=== PATIENT | male | born 1990 | race Native Hawaiian/Other Pacific Islander ===

== ENCOUNTER 2017-05-08 03:29 | Emergency (ER) | payer OTHER ==
[2017-05-08 03:29] VITALS: BMI 24.7
--- NOTE | 2017-05-08 03:50 | C.PDOC ---
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 Has had a similar episode about 3 weeks ago. Has had a negative mri at [facility]. Time Seen by Provider: 05/08/17 03:50 Chief Complaint (Nursing): Headache History Per: Patient History/Exam Limitations: no limitations Onset/Duration Of Symptoms: Hrs Current Symptoms Are (Timing): Still Present Severity: Moderate Pain Scale Rating Of: 4 Quality: Dull, Aching Preceeding Symptoms: None Associated Symptoms: Nausea, Vomiting Recent travel outside of the [place]: No Additional History Per: Patient, Family Past Medical History Reviewed: Historical Data, Nursing Documentation, Vital Signs Vital Signs: Last Vital Signs Temp 98 F 05/08/17 06:45 Pulse 105 H 05/08/17 06:45 Resp 12 05/08/17 06:45 BP 117/72 05/08/17 06:45 Pulse Ox 96 05/08/17 06:45 - Medical History PMH: Seizures Family History: States: No Known Family Hx - Social History Hx Alcohol Use: Yes Hx Substance Use: No Review Of Systems Constitutional: Negative for: Fever, Chills Eyes: Negative for: Vision Change ENT: Negative for: Throat Pain Cardiovascular: Negative for: Chest Pain Respiratory: Negative for: Shortness of Breath Gastrointestinal: Positive for: Nausea, Vomiting. Negative for: Abdominal Pain Musculoskeletal: Negative for: Back Pain Skin: Negative for: Rash Neurological: Negative for: Weakness Psych: Negative for: Anxiety Physical Exam - Physical Exam Appears: Non-toxic Skin: Warm, Dry Head: No Tenderness, Other (left craniotomy) Eye(s): bilateral: Normal Inspection Oral Mucosa: Moist Neck: Trachea Midline, Supple Chest: Symmetrical Cardiovascular: Rhythm Regular Respiratory: No Rales, No Rhonchi, No Wheezing Gastrointestinal/Abdominal: Soft, No Tenderness, No Distention Back: No CVA Tenderness Extremity: No Tenderness Extremity: Bilateral: Atraumatic Pulses: Left Dorsalis Pedis: Normal, Right Dorsalis Pedis: Normal Neurological/Psych: Oriented x3, Normal Speech, Normal Cognition Gait: Steady ED Course And Treatment - Laboratory Results Result Diagrams: 05/08/17 04:10 05/08/17 04:10 O2 Sat by Pulse Oximetry: 96 Pulse Ox Interpretation: Normal Progress Note: 5am feels better. headache almost gone. 5:[address] kaylee hammer(his neurologisy at [facility] [phone]). Spoke with dr Hurtado. Accepted the pt for transfer from [facility] to [facility]. arrangements are being made. Pt is stable, but did have another episode of emesis. vitals stable Disposition Counseled Patient/Family Regarding: Studies Performed, Diagnosis - Disposition Disposition: OTHER INSTITUTION Disposition Time: 03:50 Condition: FAIR Forms: [facility] ([place]) - Clinical Impression Clinical Impression: Headache Physician Patient Turnover Patient Signed Over To: Arian Chapman DO Handoff Comments: pending transport to [facility]
[2017-05-08 04:19] LABS: CHLORIDE 99 mmol/L (98-107); POTASSIUM 3.9 mmol/L (3.6-5.2); SODIUM 141 mmol/L (132-148)
[2017-05-08 04:20] LABS: BASO # 0.1 K/uL (0.0-0.2); EOS # 0.3 K/uL (0.0-0.7); NRBC % 0.1 % (0.0-2.0); RED CELL DISTRIBUTION WIDTH 13.7 % (11.5-14.5)
[2017-05-08 04:21] LABS: GFR AFRICAN-AMERICAN > 60
[2017-05-08 04:22] LABS: ALB/GLOB RATIO 1.5 (1.0-2.1); ALKALINE PHOSPHATASE 86 U/L (38-126); ALT/SGPT 73 U/L (21-72); AST/SGOT 34 U/L (17-59); BILIRUBIN,TOTAL 0.6 mg/dL (0.2-1.3); BLOOD UREA NITROGEN 9 mg/dL (9-20); CARBON DIOXIDE 27 mmol/L (22-30); GLUCOSE,RANDOM 111 mg/dL (75-110); TOTAL PROTEIN 6.9 g/dL (6.3-8.3)
[2017-05-08 04:23] LABS: CALCIUM 8.9 mg/dl (8.6-10.4)
[2017-05-08 04:27] LABS: BASO % 0.9 % (0.0-2.0); LYMPH # 1.9 K/uL (1.0-4.3); LYMPH % 22.3 % (20.0-40.0); MEAN CELL VOLUME 84.1 fL (80.0-94.0); MEAN CORPUSCULAR HEMOGLOBIN 28.9 pg (27.0-31.0); MEAN CORPUSCULAR HGB CONC 34.3 g/dL (33.0-37.0); MEAN PLATELET VOLUME 7.8 fL (7.2-11.7); MONO # 0.6 K/uL (0.0-0.8); MONO % 6.9 % (0.0-10.0); WHITE BLOOD COUNT 8.6 K/uL (4.8-10.8)
--- NOTE | 2017-05-08 05:03 | CT ---
EXAM: CT Head Without Intravenous Contrast CLINICAL HISTORY: 27 years old, male; Pain; Headache; Headache not specified; Additional info: HX of craniotomy, astrocytoma, headache TECHNIQUE: Axial computed tomography images of the head/brain without intravenous contrast. All CT scans at this facility use one or more dose reduction techniques, viz.: automated exposure control; ma/kV adjustment per patient size (including targeted exams where dose is matched to indication; i.e. head); or iterative reconstruction technique. COMPARISON: No prior studies for comparison. FINDINGS: Brain: Unremarkable. No significant white matter disease. No edema. No intracranial mass, mass effect, or midline shift. Ventricles: Unremarkable. No ventriculomegaly. Bones/joints: Postsurgical changes left temporal lobe. Left temporal craniotomy defect. No mass effect, or midline shift. Tiny hyperdense focus anterior aspect left temporal lobe in the region of the suspected surgical bed. This measures 6 mm. Axial image #14, series #4. No acute fracture. Soft tissues: Unremarkable. Sinuses: Unremarkable as visualized. No acute sinusitis. Mastoid air cells: Unremarkable as visualized. No mastoid effusion. IMPRESSION: Postsurgical changes left middle cranial fossa. Tiny 6 mm focus of hyperdensity within the anterior aspect of the left temporal lobe. No prior studies available for comparison. Recommend obtaining prior studies for direct comparison. If there are no prior studies available, then MRI of the brain with gadolinium is suggested to exclude the possibility of a tiny parenchymal focus of hemorrhage.
[2017-05-08 06:32] LABS: INR 1.1
[2017-05-08 07:30] VITALS: BP 123/72; PULSE 95; RESP 16; TEMP 98.4; O2SAT 100
[2017-05-08] MEDS ORDERED: oxyCODONE 5 mg Immediate Release Tab PO STA (07:32)
[2017-05-08] MEDS ORDERED: oxyCODONE 5 mg Immediate Release Tab ONE (07:35)
== END 2017-05-08 07:50 | disposition designated cancer center or children's hospital (05) ==
LOC: C.ER 03:29
DX: R51 Headache (principal)
CPT/HCPCS: 70450; 80053; 80299; 85025; 85610; 96374; 96375; 99285; J2405; J2765